=== PATIENT | female | born 1955 | race Caucasian/White ===

== ENCOUNTER 2019-01-28 05:57 | Inpatient (IN) | payer BC, OTHER ==
--- NOTE | 2019-01-27 11:39 | PCM.PREANE ---
Preanesthetic Assessment - Anesthesia/Transfusion/Family Hx Anesthesia History: Prior Anesthesia Reaction Type of Anesthesia Reaction: Excessive Nausea/Vomiting Family History of Anesthesia Reaction: No Transfusion History: No Prior Transfusion(s) Intubation History: Unknown - Review of Systems General: No Symptoms Pulmonary: No Symptoms, Cough Cardiovascular: No Symptoms Gastrointestinal: No Symptoms (GERD) Neurological: No Symptoms (Motion sickness), Tingling (bilateral hands with bone spurs noted in neck spine) Other: Reports: Thyroid Problems (hypothyroidism) - Physical Assessment NPO Status Date: 01/27/19 NPO Status Time: 20:30 Pulse: 77 O2 Sat by Pulse Oximetry: 96 Respiratory Rate: 16 Blood Pressure: 155/88 Temperature: 37.6 C Height: 1.7 m Weight: 86.183 kg ASA Class: 2 Mental Status: Alert & Oriented x3 Airway Class: Mallampati = 2 Dentition: Reports: Normal Dentition, [place](s), [place] Thyro-Mental Finger Breadths: 3 Mouth Opening Finger Breadths: 3 ROM/Head Extension: Full Lungs: Clear to Auscultation, Normal Respiratory Effort Cardiovascular: Regular Rate, Regular Rhythm, No Murmurs - Lab Values: Laboratory Last Values MRSA (PCR) Negative 01/14/19 12:59 All labs reviewed and noted and within acceptable ranges to proceed with scheduled procedure. - Imaging/EKG Impressions: EKG: SR rate=83, probable left atrial enlargement CXR: negative - Allergies Allergies/Adverse Reactions: Allergies Allergy/AdvReac Type Severity Reaction Status Date / Time bandaid adhesive Allergy Itching Uncoded 01/27/19 12:16 - Anesthesia Plan Pre-Op Medication Ordered: Other (PreOp meds: lyrica, tylenol, oxycontin all P.O. in Preop at: 0629) - Acknowledgements Anesthesia Type Planned: Spinal (Right adductor canal block under US guidance for post operative pain control requested by Dr. Luo.) Pt an Appropriate Candidate for the Planned Anesthesia: Yes Alternatives and Risks of Anesthesia Discussed w Pt/Guardian: Yes Pt/Guardian Understands and Agrees with Anesthesia Plan: Yes PreAnesthesia Questionnaire - Past Health History Medical/Surgical History: Denies Medical/Surgical History Gastrointestinal History: Reports: GERD [employer] History: Reports: Other (See Below) Other OB/BYN History: tubal ligation Endocrine/Metabolic History: Reports: Hypothyroidism - Past Surgical History GI Surgical History: Reports: Other (See Below) Musculoskeletal Surgical History: Reports: Arthroscopic Knee Oncologic Surgical History: Reports: Biopsy of Breast - SUBSTANCE USE Smoking Status *Q: Never Smoker Second Hand Smoke Exposure: No Recreational Drug Use History: No - HOME MEDS Home Medications: Home Meds Levothyroxine Sodium [Synthroid] 125 mcg PO DAILY 08/29/15 [History] Calcium Carbonate [Calcium] 500 mg PO DAILY 01/27/19 [History] Cholecalciferol (Vitamin D3) [Vitamin D3] 5,000 unit PO DAILY 01/27/19 [History] Scopolamine [Transderm-Scop] 1 patch TOP Q72H PRN 01/27/19 [History] - CURRENT (IN HOUSE) MEDS Current Meds: Current Medications Lactated Ringer's (Ringers, Lactated) 1,000 mls @ 125 mls/hr IV ASDIRECTED RADHA Stop: 01/28/19 23:00 Lidocaine/Sodium Bicarbonate (Buffered Lidocaine 1% In Ns 8.4%) 0.25 ml IDERM ONETIME PRN PRN Reason: Prior to IV Start Stop: 01/28/19 18:00 Scopolamine (Transderm-Scop) 1.5 mg TOP ONETIME ONE Stop: 01/28/19 08:01 Sodium Chloride (Saline Flush) 10 ml FLUSH ASDIRECTED PRN PRN Reason: Keep Vein Open Stop: 01/28/19 18:00
[~2019-01-28 05:57] MED LIST: Lactated Ringers 1,000 ML IV SCH; Lidocaine 1%/Sod Bicarbonate in NS 8.4% 1 ML Syringe IDERM PRN; Sodium Chloride 0.9% 10 ML Syringe FLUSH PRN
[2019-01-28] MEDS ORDERED: Acetaminophen 325 MG Tab PO SCH (06:02)
[2019-01-28] MEDS ORDERED: oxyCODONE 5 MG Tab PO SCH (06:03)
[2019-01-28] MEDS ORDERED: Pregabalin 75 MG Cap PO SCH (06:03)
[2019-01-28] MEDS ORDERED: Cyclobenzaprine 10 MG Tab PO PRN (06:21)
[2019-01-28] MEDS ORDERED: Magnesium Hydroxide 400 MG/5 ML Susp 30 ML Cup PO PRN (06:21)
[2019-01-28] MEDS ORDERED: Ondansetron 4 MG/2 ML SDV IVPUSH PRN ×2 (06:21→07:32)
[2019-01-28] MEDS ORDERED: Morphine 2 MG/ML Syringe IVPUSH PRN (06:21)
[2019-01-28] MEDS ORDERED: Sennosides 8.6 MG Tab PO PRN (06:21)
[2019-01-28] MEDS ORDERED: Bisacodyl 5 MG Tab PO PRN (06:21)
[2019-01-28] MEDS ORDERED: Naloxone 0.4 MG/ML SDV IVPUSH PRN (06:21)
[2019-01-28] MEDS: Scopolamine 1.5 MG Transdermal Patch TOP ONE ×2 (06:23→12:23)
[2019-01-28] MEDS ORDERED: Vancomycin 1 GM SDV ONE (06:27)
[2019-01-28] MEDS ORDERED: Pregabalin 25 MG Cap PO SCH (06:27)
[2019-01-28] MEDS ORDERED: Iodine/Sodium Iodide 2% Tincture 30 ML Bottle ONE (06:27)
[2019-01-28] MEDS ORDERED: ceFAZolin 1 GM Vial ONE (06:27)
[2019-01-28] MEDS ORDERED: EPINEPHrine 1 MG/ML SDV ONE (06:29)
[2019-01-28] MEDS ORDERED: Ropivacaine 0.5% 5 MG/ML 30 ML SDV ONE (06:29)
[2019-01-28] MEDS ORDERED: ceFAZolin 2 GM in Premix Bag 1 BAG IV SCH (06:30)
[2019-01-28] MEDS ORDERED: Ondansetron 4 MG/2 ML SDV ONE (07:02)
[2019-01-28] MEDS ORDERED: Ketorolac 30 MG/ML SDV ONE (07:02)
[2019-01-28] MEDS ORDERED: Phenylephrine 1% 10 MG/ML SDV ONE (07:02)
[2019-01-28] MEDS ORDERED: Lactated Ringers 1,000 ML ONE ×2 (07:02→08:27)
[2019-01-28] MEDS ORDERED: Dexamethasone 4 MG/ML SDV ONE (07:02)
[2019-01-28] MEDS ORDERED: Propofol 200 MG/20 ML SDV ONE (07:03)
[2019-01-28] MEDS ORDERED: fentaNYL 100 MCG/2 ML SDV ONE (07:03)
[2019-01-28] MEDS ORDERED: Midazolam 1 MG/ML 2 ML SDV ONE (07:03)
--- NOTE | 2019-01-28 07:10 | PCM.CONS ---
H&P History of Present Illness - General Date of Service: 01/28/19 Admit Problem/Dx: Admission Diagnosis/Problem Admission Diagnosis/Problem Osteoarthritis of knee Source of Information: Patient, Old Records, Provider, RN, RN Notes Reviewed History Limitations: Reports: No Limitations - History of Present Illness Initial Comments - Free Text/Narative: Tangela Berman is a 63 yo female patient of Dr. Luo who is post-operative day 0 of right TKA. Hospital medicine was consulted for post-operative medical care of her chronic medical conditions listed below. At this time she is resting comfortably in bed. Pain is controlled. She denies any chest pain, shortness of breath, palpitations, nausea, or vomiting. She carries a history of: hypothyroidism, HLD, OA, GERD, osteopenia. 12-lead EKG shows a sinus rhythm at 83 with probable left atrial enlargement. She was never a smoker. She is a full code. Her primary care provider is Dr. Stallings. Right Knee Pain Score (Numeric/FACES): 2 - Related Data Allergies/Adverse Reactions: Allergies Allergy/AdvReac Type Severity Reaction Status Date / Time bandaid adhesive Allergy Severe Itching Uncoded 01/28/19 10:13 Home Medications: Home Meds Levothyroxine Sodium [Synthroid] 125 mcg PO DAILY 08/29/15 [History] Calcium Carbonate [Calcium] 500 mg PO DAILY 01/27/19 [History] Cholecalciferol (Vitamin D3) [Vitamin D3] 5,000 unit PO DAILY 01/27/19 [History] Scopolamine [Transderm-Scop] 1 patch TOP Q72H PRN 01/27/19 [History] Past Medical History - Past Health History Medical/Surgical History: Denies Medical/Surgical History HEENT History: Reports: Impaired Vision Cardiovascular History: Reports: High Cholesterol Respiratory History: Reports: None Gastrointestinal History: Reports: GERD Other Gastrointestinal History: hematochezia, epigastric pain Genitourinary History: [employer] History: Reports: Other (See Below) Other OB/BYN History: tubal ligation Musculoskeletal History: Reports: Osteoarthritis Neurological History: Reports: None Psychiatric History: Reports: None Endocrine/Metabolic History: Reports: Hypothyroidism Hematologic History: Reports: None Immunologic History: Reports: None Oncologic (Cancer) History: Reports: None Dermatologic History: Reports: None - Past Surgical History GI Surgical History: Reports: Other (See Below) Musculoskeletal Surgical History: Reports: Arthroscopic Knee Oncologic Surgical History: Reports: Biopsy of Breast Social & Family History - Family History Cardiac: Reports: Heart Failure Other Cardiac Family History: mother with diabbetes and CHF Other GI Family History: Daughter with ulcerative colitis Endocrine/Metabolic: Reports: Diabetes, Type I, Hypothyroidism Other Oncologic Family History: Father with esophageal cancer - Tobacco Use Smoking Status *Q: Never Smoker Second Hand Smoke Exposure: No - Caffeine Use Caffeine Use: Reports: Coffee - Recreational Drug Use Recreational Drug Use: No H&P Review of Systems - Review of Systems: Review Of Systems: See Below General: Reports: No Symptoms. Denies: Fever, Chills HEENT: Reports: No Symptoms. Denies: Headaches, Sore Throat Pulmonary: Reports: No Symptoms. Denies: Shortness of Breath, Wheezing, Cough, Sputum Cardiovascular: Reports: No Symptoms. Denies: Chest Pain, Palpitations, Dyspnea on Exertion, Edema Gastrointestinal: Reports: No Symptoms. Denies: Abdominal Pain, Constipation, Diarrhea, Nausea, Vomiting Genitourinary: Reports: No Symptoms. Denies: Pain Musculoskeletal: Reports: Leg Pain Skin: Reports: No Symptoms Psychiatric: Reports: No Symptoms. Denies: Confusion Neurological: Reports: No Symptoms Hematologic/Lymphatic: Reports: No Symptoms Immunologic: Reports: No Symptoms Exam - Exam Exam: See Below - Vital Signs Vital Signs: Last Vital Signs Temp 99.7 F 01/28/19 06:48 Pulse 77 01/28/19 06:48 Resp 16 01/28/19 06:48 BP 155/88 H 01/28/19 06:48 Pulse Ox 96 01/28/19 06:48 Weight: 190 lb - Exam Quality Assessment: DVT Prophylaxis General: Alert, Oriented, Cooperative. No: Mild Distress HEENT: Conjunctiva Clear, EACs Clear, EOMI, Hearing Intact, Mucosa Moist & [place] , Nares Patent, Posterior Pharynx Clear, PERRLA Neck: Supple, Trachea Midline Lungs: Clear to Auscultation, Normal Respiratory Effort Cardiovascular: Regular Rate, Regular Rhythm GI/Abdominal Exam: Normal Bowel Sounds, Soft, Non-Tender, No Organomegaly, No Distention (Female) Exam: Deferred Rectal (Female) Exam: Deferred Back Exam: Normal Inspection, Full Range of Motion Extremities: No Pedal Edema, Normal Capillary Refill, Leg Pain, Limited Range of Motion, Other (Bandage in place on right leg. Bandage is dry and intact. Cooling pack in place ) Peripheral Pulses: 2+: Radial (L), Radial (R), Dorsalis Pedis (L), Dorsalis Pedis (R) Skin: Warm, Dry, Intact Neurological: Cranial Nerves Intact (grossly ) Neuro Extensive - Mental Status: Alert, Oriented x3 Consult PN Assessment/Plan POD#: 0 Procedures: Procedures CT MAXILLOFACIAL W/O DYE (09/01/16) EMERGENCY DEPT VISIT (09/01/16) (1) S/P total knee arthroplasty SNOMED Code(s): 7271062183207, 842055964, 7011674052323 Code(s): Z96.659 - PRESENCE OF UNSPECIFIED ARTIFICIAL KNEE JOINT Priority: High Current Visit: Yes Qualifiers: Laterality: right Qualified Code(s): Z96.651 - Presence of right artificial knee joint (2) Hypothyroidism SNOMED Code(s): 99548417 Code(s): E03.9 - HYPOTHYROIDISM, UNSPECIFIED Priority: Medium Current Visit: No Qualifiers: Hypothyroidism type: unspecified Qualified Code(s): E03.9 - Hypothyroidism , unspecified (3) Osteoarthritis SNOMED Code(s): 522899155 Code(s): M19.90 - UNSPECIFIED OSTEOARTHRITIS, UNSPECIFIED SITE Priority: High Current Visit: Yes Qualifiers: Osteoarthritis location: knee Osteoarthritis type: primary Laterality: right Qualified Code(s): M17.11 - Unilateral primary osteoarthritis, right knee (4) HLD (hyperlipidemia) SNOMED Code(s): 05551223 Code(s): E78.5 - HYPERLIPIDEMIA, UNSPECIFIED Priority: Low Current Visit : No Qualifiers: Hyperlipidemia type: unspecified Qualified Code(s): E78.5 - Hyperlipidemia , unspecified (5) GERD (gastroesophageal reflux disease) SNOMED Code(s): 142239266 Code(s): K21.9 - GASTRO-ESOPHAGEAL REFLUX DISEASE WITHOUT ESOPHAGITIS Priority: Medium Current Visit: No Qualifiers: Esophagitis presence: esophagitis presence not specified Qualified Code(s) : K21.9 - Gastro-esophageal reflux disease without esophagitis (6) Osteopenia SNOMED Code(s): 129338218 Code(s): M85.80 - OTH DISRD OF BONE DENSITY AND STRUCTURE, UNSPECIFIED SITE Priority: Medium Current Visit: No Qualifiers: Osteopenia location: unspecified Qualified Code(s): M85.80 - Other specified disorders of bone density and structure, unspecified site Problem List Initiated/Reviewed/Updated: Yes Plan: I/P: Acute: S/P right total knee arthroplasty - post-operative day 0 -DVT prophylaxis and pain management per primary care team -PT/OT -IS/RT -Monitor oxygen saturation -Titrate oxygen as needed -Home medications reviewed -Vital signs stable -Monitor labs -Pre-operative Hgb was 13.5 -Pre-operative GFR was 65 Osteoarthritis of right knee -Pain management per primary care team Chronic: GERD Hypothyroidism OA HLD Osteopenia Plan: CM for discharge planning GI prophylaxis Home medications as indicated Other orders as listed above Routine AM labs She is a full code. Her PCP is Dr. Stallings Thank you for allowing us to participate in the care of this patient!! Requesting Provider: Dr. Luo Date Consult Requested: 01/28/19 Patient History Reviewed: Yes Admission H&P Reviewed: Yes Time Spent (in minutes): 45
[2019-01-28] MEDS ORDERED: Haloperidol Lactate 5 MG/ML SDV IVPUSH ONE (07:32)
[2019-01-28] MEDS ORDERED: fentaNYL 100 MCG/2 ML SDV IVPUSH PRN (07:32)
[2019-01-28] MEDS ORDERED: HYDROmorphone 0.5 MG/0.5 ML Syringe IVPUSH PRN (07:32)
[2019-01-28] MEDS ORDERED: ePHEDrine 50 MG/ML SDV IVPUSH PRN (07:32)
[2019-01-28] MEDS ORDERED: diphenhydrAMINE 50 MG/ML SDV IVPUSH PRN (07:32)
[2019-01-28] MEDS ORDERED: Phenylephrine 1 MG in Sodium Chloride 0.9% 10 ML IV SCH (07:45)
[2019-01-28] MEDS ORDERED: Morphine 8 MG, EPINEPHrine 0.3 MG, Cefuroxime 750 MG, Ketorolac 30 MG, Sodium Chloride ... ONE ×5 (08:00)
[2019-01-28] MEDS: Morphine 8 MG, EPINEPHrine 0.3 MG, Cefuroxime 750 MG, Ketorolac 30 MG, Sodium Chloride ... ONE ×10 (08:20→08:22)
[2019-01-28] MEDS ORDERED: ePHEDrine/Normal Saline 25 MG/5 ML Syringe ONE (08:20)
[2019-01-28] MEDS: Bupivacaine 0.25% 30 ML SDV ONE ×2 (08:21→08:22)
--- NOTE | 2019-01-28 08:59 | PCM.POSTAN ---
POST ANESTHESIA ASSESSMENT - MENTAL STATUS Mental Status: Alert - VITAL SIGNS Pulse Rate: 82 SaO2: 98 Resp Rate: 17 Blood Pressure: 105/81 Temperature: 36.4 C - RESPIRATORY Respiratory Status: Respiratory Rate WNL, Airway Patent, O2 Saturation Stable - CARDIOVASCULAR CV Status: Pulse Rate WNL, Blood Pressure Stable - GASTROINTESTINAL GI Status: No Symptoms - POST OP HYDRATION Hydration Status: Adequate & Stable
--- NOTE | 2019-01-28 09:17 | PCM.SN ---
- Free Text/Narrative Note: Right selective femoral nerve block at the adductor canal for post-procedure pain control under US guidance requested by Dr. Luo. Time Out: 901 Start: 901 End: 908 Chart reviewed. Consent signed. Questions answered. Appropriate monitors applied. Time out performed. Right mid-shaft femur identified with ultrasound, scanning medially of femur, the femoral artery in the adductor canal visualized , and the femoral nerve located laterally to the artery. The skin was prepped lateral to the ultrasound probe with chlorahexadine times two. The 21ga 4 insulated block needle was inserted under direct ultrasound guidance into the adductor canal. 25mL of 0.5% ropivacaine with 1:200,000 epinephrine was injected circumferentially around the nerve with intermittent negative aspiration noted. Patient tolerated the procedure well. Sterile technique noted along with sterile gloves, mask, and sterile probe cover. See picture on progress note and vital signs on nurses notes. Block completed in PACU. Dolores Kilgore CRNA
--- NOTE | 2019-01-28 09:47 | CR ---
Right knee: AP and lateral views of the right knee were obtained utilizing portable technique. Comparison: Prior MRI right knee study of 08/20/12. Knee prosthesis is seen. Components are aligned. Soft tissue air is noted from the surgical procedure. Underlying bony structures are intact. Impression: 1. Satisfactory postoperative radiographic appearance of recently placed right knee prosthesis. Diagnostic code #2
--- NOTE | 2019-01-28 10:46 | PCM.OPNOTE ---
- General Post-Op/Procedure Note Date of Surgery/Procedure: 01/28/19 Operative Procedure(s): right total knee arthroplasty Pre Op Diagnosis: right knee osteoarthrosis Post-Op Diagnosis: Same Anesthesia Technique: Local, MAC, Spinal Primary Surgeon: Willian Luo Anesthesia Provider: Dolores Kilgore Relationship Banker: Marie Scott Relationship Banker: Maris Truong EBL in mLs: 350 Complications: None Condition: Good Free Text/Narrative:: Intake & Output 01/27/19 01/28/19 01/28/19 22:59 06:59 14:59 Intake Total 540 Balance 540 size 5/5 9mm 29x9
--- NOTE | 2019-01-28 11:14 | OR ---
DATE OF OPERATION: 01/28/2019 SURGEON: Willian Luo MD OPERATION PERFORMED: Right total knee arthroplasty. PREOPERATIVE DIAGNOSIS: Right knee osteoarthrosis. POSTOPERATIVE DIAGNOSIS: Right knee osteoarthrosis. ANESTHESIA: Local MAC with spinal. ANESTHESIA PROVIDER: Dolores Kilgore CRNA TOP DYEING MACHINE TENDER: Marie Scott PA-C, and Maris Truong LPN. ESTIMATED BLOOD LOSS: 350 mL. COMPLICATIONS: None. CONDITION: Stable. IMPLANTS: 1. May size 5 press-fit CR femur. 2. Ivor size 5 press-fit universal tibial base plate. 3. May size 9 mm CS polyethylene insert. 4. Ivor size 29 x 9 mm press fit patella. DESCRIPTION OF PROCEDURE: The patient was identified in the preop holding area. Proper site was marked and identified by the surgeon. The patient was taken back to the operating theater. After adequate anesthesia, the patient's right lower extremity had a nonsterile tourniquet applied and it was sterilely prepped and draped in the usual sterile fashion. OR time-out was performed. The patient received 2 g IV Ancef. At this time, the right lower extremity was exsanguinated. Tourniquet was insufflated to 300 mmHg. Standard medial parapatellar incision was made. Medial parapatellar arthrotomy was created. Deep fibers of the MCL were raised and anterior fat pad was resected. At this time, attention was turned to the patella. Patella measured 20, it was resected to 13 for a 29 x 9 mm patella. Drill holes were then drilled and found to be in adequate position. The drill was then drilled in the distal femur and the intramedullary distal femoral cutting guide was then placed. An 8 mm was resected off the distal femur and was found to be an adequate resection. Sizing guide was placed. It was found to be a size 5 press-fit CR femur that was shown on the implant record at the beginning of this dictation. The drill holes were drilled for the epicondylar axis using [place] line and epicondyles as reference. At this time, the 4-in - 1 cutting block was placed. An anterior posterior and anterior and posterior chamfer cuts were then completed. Attention was turned to the tibia. The posterior medial lateral retractors were placed. The extramedullary tibial guide was placed. It was placed in the old footprint of the ACL. It was aligned with the center of the ankle and 0 degrees of slope, 9 mm was then resected off the unaffected side. There was found to be an acceptable reduction. At this time, posterior osteophytes were removed along with medial and lateral meniscus. A trial implant was placed with a correct sized tibia that was mentioned at the beginning of the dictation. A May size 9 mm CS polyethylene insert was then placed. The patient's knee was brought through range of motion. The patella was tracking centrally and was stable to varus and valgus stress. Alignment was found to be roughly at 0 degrees. The tibia was stamped and drilled in proper rotation. The universal tibial base plate was impacted in place. Next, the May size 5 press-fit CR femur impacted into place and the Ivor size 9 mm CS polyethylene insert was placed. The patient's knee was brought into full extension. The patella was then press-fit in place at this time. Tourniquet was deflated. One liter dilute Betadine solution was irrigated through the knee along with 3 L of pulse lavage irrigation with Ancef. Periarticular injection was then completed. The patient's knee was brought through a range of motion. Knee was found to be stable to varus valgus stress, the patella was tracking centrally with full range of motion. At this time, a #2 barbed suture was used for closure of the medial parapatellar arthrotomy. Topical tranexamic acid was placed. 2-0 Vicryl was used subcutaneously, Prineo was used for the skin. The patient tolerated the procedure well and was sent to the PACU in stable condition. MARCO /[id number] MTDD
[2019-01-28] MEDS: Famotidine 20 MG Tab PO SCH ×2 (12:23→17:31)
[2019-01-28] MEDS: ceFAZolin 2 GM in Premix Bag 1 BAG IV SCH ×2 (13:48→22:35)
[2019-01-28] MEDS: Acetaminophen/oxyCODONE 325-5 MG Tab PO PRN ×2 (13:49→21:12)
[2019-01-28] MEDS: Docusate Sodium 100 MG Cap PO SCH (21:13)
[2019-01-28] MEDS: Ketorolac 15 MG/ML SDV IVPUSH PRN (22:52)
[2019-01-29] MEDS: Acetaminophen/oxyCODONE 325-5 MG Tab PO PRN ×2 (04:29→10:15)
[2019-01-29] MEDS: Famotidine 20 MG Tab PO SCH (06:22)
[2019-01-29] MEDS: ceFAZolin 2 GM in Premix Bag 1 BAG IV SCH (06:22)
--- NOTE | 2019-01-29 06:26 | PCM.CONSN ---
- General Info Date of Service: 01/29/19 Admission Dx/Problem (Free Text): Admission Diagnosis/Problem Admission Diagnosis/Problem Osteoarthritis of knee Functional Status: Reports: Pain Controlled, Tolerating Diet, Ambulating, Urinating, Incentive Spirometry. Denies: New Symptoms - Review of Systems General: Reports: No Symptoms. Denies: Fever, Malaise, Chills HEENT: Reports: No Symptoms. Denies: Headaches, Sore Throat Pulmonary: Reports: No Symptoms. Denies: Shortness of Breath, Cough, Sputum, Wheezing Cardiovascular: Reports: No Symptoms. Denies: Chest Pain, Palpitations, Edema Gastrointestinal: Reports: No Symptoms. Denies: Abdominal Pain, Constipation, Diarrhea, Nausea, Vomiting Genitourinary: Reports: No Symptoms. Denies: Pain Musculoskeletal: Reports: Leg Pain Skin: Reports: No Symptoms Neurological: Reports: No Symptoms. Denies: Confusion Psychiatric: Reports: No Symptoms - Patient Data Vitals - Most Recent: Last Vital Signs Temp 97.5 F 01/28/19 20:31 Pulse 66 01/29/19 04:27 Resp 16 01/29/19 04:27 BP 130/98 H 01/29/19 04:27 Pulse Ox 98 01/29/19 04:27 Weight - Most Recent: 197 lb 1.6 oz I&O - Last 24 Hours: Intake & Output 01/28/19 01/28/19 01/29/19 14:59 22:59 06:59 Intake Total 9713 330 2616 Output Total 1100 1400 Balance 1270 -300 -125 Med Orders - Current: Current Medications Aspirin (Ecotrin) 325 mg PO BID [facility] Bisacodyl (Dulcolax) 5 mg PO DAILY PRN PRN Reason: Constipation Calcium Carbonate/Glycine (Tums) 500 mg PO DAILY [facility] Cholecalciferol (Vitamin D3) 5,000 unit PO DAILY [facility] Cyclobenzaprine HCl (Flexeril) 10 mg PO TID PRN PRN Reason: Spasms Docusate Sodium (Colace) 100 mg PO BID [facility] Last Admin: 01/28/19 21:13 Dose: 100 mg Famotidine (Pepcid) 20 mg PO Q12H [facility] Last Admin: 01/29/19 06:22 Dose: 20 mg Cefazolin Sodium/Dextrose 2 gm (/ Premix) 50 mls @ 100 mls/hr IV Q8H [facility] Stop: 01/29/19 06:59 Last Admin: 01/29/19 06:22 Dose: 100 mls/hr Ketorolac Tromethamine (Toradol) 15 mg IVPUSH Q6H PRN PRN Reason: Pain Last Admin: 01/28/19 22:52 Dose: 15 mg Levothyroxine Sodium (Levothyroxine) 125 mcg PO DAILY@0700 [facility] Last Admin: 01/29/19 06:22 Dose: 125 mcg Magnesium Hydroxide (Milk Of Magnesia) 30 ml PO BID PRN PRN Reason: Constipation Miscellaneous Information (Remove Patch) 1 ea TRDERM Q72H [facility] Morphine Sulfate (Morphine) 2 mg IVPUSH Q2H PRN PRN Reason: Breakthrough Pain Naloxone HCl (Narcan) 0.1 mg IVPUSH Q5M PRN PRN Reason: Oversedation Ondansetron HCl (Zofran) 4 mg IVPUSH Q6H PRN PRN Reason: Nausea/Vomiting Oxycodone/Acetaminophen (Percocet 325-5 Mg) 1 - 2 tab PO Q4H PRN PRN Reason: Pain Last Admin: 01/29/19 04:29 Dose: 2 tab Scopolamine (Transderm-Scop) 1.5 mg TOP Q72H PRN PRN Reason: motion sickness Senna (Senna) 8.6 mg PO BID PRN PRN Reason: Constipation Discontinued Medications Acetaminophen (Tylenol) 975 mg PO NOW [facility] Last Admin: 01/28/19 06:29 Dose: 975 mg Bupivacaine HCl (Marcaine 0.25%) Confirm Administered Dose 30 ml .ROUTE .STK- MED ONE Stop: 01/28/19 06:28 Last Admin: 01/28/19 08:21 Dose: 30 ml Cefazolin Sodium (Ancef) Confirm Administered Dose 2 gm .ROUTE .STK-MED ONE Stop: 01/28/19 06:28 Last Admin: 01/28/19 08:15 Dose: 2 gm Morphine Sulfate 8 mg/Epinephrine HCl 0.3 mg/Cefuroxime Sodium 750 mg/Ketorolac Tromethamine 30 mg/Sodium Chloride 27.9 ml 0 mg .XX ONETIME ONE Stop: 01/28/19 06:22 Last Admin: 01/28/19 08:20 Dose: 788.3 mg Morphine Sulfate 8 mg/Epinephrine HCl 0.3 mg/Cefuroxime Sodium 750 mg/Ketorolac Tromethamine 30 mg/Sodium Chloride 27.9 ml 0 mg .XX ONETIME ONE Stop: 01/28/19 08:01 Last Admin: 01/28/19 12:25 Dose: Not Given Dexamethasone (Dexamethasone) Confirm Administered Dose 4 mg .ROUTE .STK-MED ONE Stop: 01/28/19 07:03 Diphenhydramine HCl (Benadryl) 25 mg IVPUSH Q6H PRN PRN Reason: pruritis Stop: 01/28/19 23:00 Ephedrine Sulfate (Ephedrine Sulfate) 5 mg IVPUSH ASDIRECTED PRN PRN Reason: Hypotension Stop: 01/28/19 23:00 Ephedrine Sulfate (Ephedrine In Ns) Confirm Administered Dose 25 mg .ROUTE .STK- MED ONE Stop: 01/28/19 08:21 Epinephrine HCl (Adrenalin) Confirm Administered Dose 1 mg .ROUTE .STK-MED ONE Stop: 01/28/19 06:30 Fentanyl (Sublimaze) Confirm Administered Dose 100 mcg .ROUTE .STK-MED ONE Stop: 01/28/19 07:04 Fentanyl (Sublimaze) 50 mcg IVPUSH Q5M PRN PRN Reason: Pain Stop: 01/28/19 23:00 Haloperidol Lactate (Haldol) 1 mg IVPUSH ONETIME ONE Stop: 01/28/19 07:33 Last Admin: 01/28/19 12:24 Dose: Not Given Hydromorphone HCl (Dilaudid) 0.5 mg IVPUSH Q15M PRN PRN Reason: Pain (severe 7-10) Stop: 01/28/19 23:00 Lactated Ringer's (Ringers, Lactated) 1,000 mls @ 125 mls/hr IV ASDIRECTED [facility] Stop: 01/28/19 23:00 Last Admin: 01/28/19 06:35 Dose: 125 mls/hr Cefazolin Sodium/Dextrose 2 gm (/ Premix) 50 mls @ 100 mls/hr IV Q8H [facility] Stop: 01/28/19 22:59 Last Admin: 01/28/19 14:28 Dose: Not Given Lidocaine HCl (Xylocaine-Mpf 1%) Confirm Administered Dose 10 mls @ as directed .ROUTE .STK-MED ONE Stop: 01/28/19 07:03 Lactated Ringer's (Ringers, Lactated) Confirm Administered Dose 1,000 mls @ as directed .ROUTE .[facility]-MED ONE Stop: 01/28/19 07:03 Phenylephrine HCl 1 mg/ Sodium (Chloride) 10.1 mls @ 1 mls/sec IV TITRATE [facility]; Protocol Stop: 01/28/19 23:00 Lactated Ringer's (Ringers, Lactated) Confirm Administered Dose 1,000 mls @ as directed .ROUTE .[facility]-MED ONE Stop: 01/28/19 08:28 Iodine (Iodine 2% Mild Tincture) Confirm Administered Dose 30 ml .ROUTE .[facility]- MED ONE Stop: 01/28/19 06:28 Last Admin: 01/28/19 08:12 Dose: 18 ml Ketorolac Tromethamine (Toradol) Confirm Administered Dose 30 mg .ROUTE .[facility]- MED ONE Stop: 01/28/19 07:03 Lidocaine/Sodium Bicarbonate (Buffered Lidocaine 1% In Ns 8.4%) 0.25 ml IDERM ONETIME PRN PRN Reason: Prior to IV Start Stop: 01/28/19 18:00 Last Admin: 01/28/19 06:24 Dose: 0.25 ml Midazolam HCl (Versed 1 Mg/Ml) Confirm Administered Dose 2 mg .ROUTE .[facility]-MED ONE Stop: 01/28/19 07:04 Ondansetron HCl (Zofran) Confirm Administered Dose 4 mg .ROUTE .[facility]-MED ONE Stop: 01/28/19 07:03 Ondansetron HCl (Zofran) 4 mg IVPUSH ONETIME PRN PRN Reason: Nausea/Vomiting Stop: 01/28/19 23:00 Oxycodone HCl (Oxycodone) 10 mg PO ONETIME [facility] Last Admin: 01/28/19 06:29 Dose: 10 mg Phenylephrine HCl (Pedro-Synephrine) Confirm Administered Dose 10 mg .ROUTE .ST- MED ONE Stop: 01/28/19 07:03 Pregabalin (Lyrica) 50 mg PO ONETIME [facility] Pregabalin (Lyrica) 50 mg PO ONETIME [facility] Last Admin: 01/28/19 06:29 Dose: 50 mg Propofol (Diprivan 20 Ml) Confirm Administered Dose 400 mg .ROUTE .STK-MED ONE Stop: 01/28/19 07:04 Ropivacaine (Naropin 0.5%) Confirm Administered Dose 30 ml .ROUTE .STK-MED ONE Stop: 01/28/19 06:30 Scopolamine (Transderm-Scop) 1.5 mg TOP ONETIME ONE Stop: 01/28/19 08:01 Last Admin: 01/28/19 12:23 Dose: Not Given Sodium Chloride (Saline Flush) 10 ml FLUSH ASDIRECTED PRN PRN Reason: Keep Vein Open Stop: 01/28/19 18:00 Tranexamic Acid (Cyklokapron) Confirm Administered Dose 1,000 mg .ROUTE .STK- MED ONE Stop: 01/28/19 06:28 Last Admin: 01/28/19 08:31 Dose: 1,000 mg Vancomycin HCl (Vancomycin) Confirm Administered Dose 1 gm .ROUTE .STK-MED ONE Stop: 01/28/19 06:28 Last Admin: 01/28/19 08:22 Dose: 1 gm - Exam Quality Assessment: DVT Prophylaxis General: Alert, Oriented, Cooperative, No Acute Distress HEENT: Pupils Equal, Pupils Reactive, EOMI, Mucous Membr. Moist/[place] Neck: Supple, Trachea Midline, No JVD Lungs: Clear to Auscultation, Normal Respiratory Effort Cardiovascular: Regular Rate, Regular Rhythm GI/Abdominal Exam: Normal Bowel Sounds, Soft, Non-Tender, No Organomegaly, No Distention (Female) Exam: Deferred Back Exam: Normal Inspection, Full Range of Motion Extremities: No Pedal Edema, Normal Capillary Refill, Leg Pain, Limited Range of Motion, Other (Bandage in place on right leg. Cooling pack in place. ) Peripheral Pulses: 2+: Radial (L), Radial (R), Dorsalis Pedis (L), Dorsalis Pedis (R) Skin: Warm, Dry, Intact Wound/Incisions: Dressing Dry and Intact, No Drainage Neurological: No New Focal Deficit Psy/Mental Status: Alert, Normal Affect, Normal Mood Consult PN Assessment/Plan POD#: 1 Procedures: Procedures CT MAXILLOFACIAL W/O DYE (09/01/16) EMERGENCY DEPT VISIT (09/01/16) (1) S/P total knee arthroplasty SNOMED Code(s): 4884599144637, 195421849, 5447232448863 Code(s): Z96.659 - PRESENCE OF UNSPECIFIED ARTIFICIAL KNEE JOINT Priority: High Current Visit: Yes Qualifiers: Laterality: right Qualified Code(s): Z96.651 - Presence of right artificial knee joint (2) Hypothyroidism SNOMED Code(s): 14528712 Code(s): E03.9 - HYPOTHYROIDISM, UNSPECIFIED Priority: Medium Current Visit: No Qualifiers: Hypothyroidism type: unspecified Qualified Code(s): E03.9 - Hypothyroidism , unspecified (3) Osteoarthritis SNOMED Code(s): 070892333 Code(s): M19.90 - UNSPECIFIED OSTEOARTHRITIS, UNSPECIFIED SITE Priority: High Current Visit: Yes Qualifiers: Osteoarthritis location: knee Osteoarthritis type: primary Laterality: right Qualified Code(s): M17.11 - Unilateral primary osteoarthritis, right knee (4) HLD (hyperlipidemia) SNOMED Code(s): 76025536 Code(s): E78.5 - HYPERLIPIDEMIA, UNSPECIFIED Priority: Low Current Visit : No Qualifiers: Hyperlipidemia type: unspecified Qualified Code(s): E78.5 - Hyperlipidemia , unspecified (5) GERD (gastroesophageal reflux disease) SNOMED Code(s): 627228060 Code(s): K21.9 - GASTRO-ESOPHAGEAL REFLUX DISEASE WITHOUT ESOPHAGITIS Priority: Medium Current Visit: No Qualifiers: Esophagitis presence: esophagitis presence not specified Qualified Code(s) : K21.9 - Gastro-esophageal reflux disease without esophagitis (6) Osteopenia SNOMED Code(s): 422314255 Code(s): M85.80 - OTH DISRD OF BONE DENSITY AND STRUCTURE, UNSPECIFIED SITE Priority: Medium Current Visit: No Qualifiers: Osteopenia location: unspecified Qualified Code(s): M85.80 - Other specified disorders of bone density and structure, unspecified site Problem List Initiated/Reviewed/Updated: Yes Plan: I/P: Acute: S/P right total knee arthroplasty - post-operative day 1 -DVT prophylaxis and pain management per primary care team -PT/OT -IS/RT -Monitor oxygen saturation -Titrate oxygen as needed -Home medications reviewed -Vital signs stable -Monitor labs -Pre-operative Hgb was 13.5; Now 10.0 -Pre-operative GFR was 65; Now 56 Osteoarthritis of right knee -Pain management per primary care team Chronic: GERD Hypothyroidism OA HLD Osteopenia Plan: CM for discharge planning GI prophylaxis Home medications as indicated Other orders as listed above Routine AM labs She is a full code. Her PCP is Dr. Stallings From a hospitalist standpoint Tangela is doing well. She has been up ambulating and working with therapies. Her labs and vital signs have remained stable. She has urinated and is off of oxygen. No patient or nursing concerns. She will be cleared for discharge today pending primary team and PT/OT agreement. Thank you for allowing us to participate in the care of this patient!!
[2019-01-29] MEDS ORDERED: Levothyroxine 125 MCG Tab PO SCH (07:00)
--- NOTE | 2019-01-29 07:03 | PCM.SURGPN ---
- General Info Date of Service: 01/29/19 POD#: 1 Functional Status: Reports: Tolerating Diet, Ambulating, Urinating, Incentive Spirometry, Other (Pt states she feels prepared for discharge to home.) - Patient Data Vitals - Most Recent: Last Vital Signs Temp 97.5 F 01/28/19 20:31 Pulse 66 01/29/19 04:27 Resp 16 01/29/19 04:27 BP 130/98 H 01/29/19 04:27 Pulse Ox 98 01/29/19 04:27 Weight - Most Recent: 197 lb 1.6 oz I&O - Last 24 Hours: Intake & Output 01/28/19 01/29/19 01/29/19 22:59 06:59 14:59 Intake Total 800 1275 Output Total 1100 1400 Balance -300 -125 Lab Results Last 24 Hrs: Laboratory Results - last 24 hr 01/29/19 01/29/19 Range/Units 05:27 05:27 WBC 10.47 H (3.98-10.04) K/mm3 RBC 3.29 L (3.98-5.22) M/mm3 Hgb 10.0 L D (11.2-15.7) gm/L Hct 30.9 L (34.1-44.9) % MCV 93.9 D (79.4-94.8) fl MCH 30.4 (25.6-32.2) pg MCHC 32.4 (32.2-35.5) g/dl RDW Std Deviation 44.4 (36.4-46.3) fL Plt Count 289 (182-369) K/mm3 MPV 9.5 (9.4-12.3) fl Sodium 136 (136-145) mEq/L Potassium 4.0 (3.5-5.1) mEq/L Chloride 102 (98-107) mEq/L Carbon Dioxide 26 (21-32) mEq/L Anion Gap 12.0 (5-15) BUN 17 (7-18) mg/dL Creatinine 1.0 (0.55-1.02) mg/dL Est Cr Clr Drug Dosing 56.00 mL/min Estimated GFR (MDRD) 56 (>60) mL/min BUN/Creatinine Ratio 17.0 (14-18) Glucose 118 H (80-115) mg/dL Calcium 8.5 (8.5-10.1) mg/dL Total Bilirubin 0.6 (0.2-1.0) mg/dL AST 38 H (15-37) U/L ALT 50 (14-59) U/L Alkaline Phosphatase 63 (46-116) U/L Total Protein 5.8 L (6.4-8.2) g/dl Albumin 2.9 L (3.4-5.0) g/dl Globulin 2.9 gm/dL Albumin/Globulin Ratio 1.0 (1-2) Med Orders - Current: Current Medications Aspirin (Ecotrin) 325 mg PO BID [facility] Bisacodyl (Dulcolax) 5 mg PO DAILY PRN PRN Reason: Constipation Calcium Carbonate/Glycine (Tums) 500 mg PO DAILY [facility] Cholecalciferol (Vitamin D3) 5,000 unit PO DAILY [facility] Cyclobenzaprine HCl (Flexeril) 10 mg PO TID PRN PRN Reason: Spasms Docusate Sodium (Colace) 100 mg PO BID [facility] Last Admin: 01/28/19 21:13 Dose: 100 mg Famotidine (Pepcid) 20 mg PO Q12H [facility] Last Admin: 01/29/19 06:22 Dose: 20 mg Ketorolac Tromethamine (Toradol) 15 mg IVPUSH Q6H PRN PRN Reason: Pain Last Admin: 01/28/19 22:52 Dose: 15 mg Levothyroxine Sodium (Levothyroxine) 125 mcg PO DAILY@0700 [facility] Last Admin: 01/29/19 06:22 Dose: 125 mcg Magnesium Hydroxide (Milk Of Magnesia) 30 ml PO BID PRN PRN Reason: Constipation Miscellaneous Information (Remove Patch) 1 ea TRDERM Q72H [facility] Morphine Sulfate (Morphine) 2 mg IVPUSH Q2H PRN PRN Reason: Breakthrough Pain Naloxone HCl (Narcan) 0.1 mg IVPUSH Q5M PRN PRN Reason: Oversedation Ondansetron HCl (Zofran) 4 mg IVPUSH Q6H PRN PRN Reason: Nausea/Vomiting Oxycodone/Acetaminophen (Percocet 325-5 Mg) 1 - 2 tab PO Q4H PRN PRN Reason: Pain Last Admin: 01/29/19 04:29 Dose: 2 tab Scopolamine (Transderm-Scop) 1.5 mg TOP Q72H PRN PRN Reason: motion sickness Senna (Senna) 8.6 mg PO BID PRN PRN Reason: Constipation Discontinued Medications Acetaminophen (Tylenol) 975 mg PO NOW [facility] Last Admin: 01/28/19 06:29 Dose: 975 mg Bupivacaine HCl (Marcaine 0.25%) Confirm Administered Dose 30 ml .ROUTE .STK- MED ONE Stop: 01/28/19 06:28 Last Admin: 01/28/19 08:21 Dose: 30 ml Cefazolin Sodium (Ancef) Confirm Administered Dose 2 gm .ROUTE .STK-MED ONE Stop: 01/28/19 06:28 Last Admin: 01/28/19 08:15 Dose: 2 gm Morphine Sulfate 8 mg/Epinephrine HCl 0.3 mg/Cefuroxime Sodium 750 mg/Ketorolac Tromethamine 30 mg/Sodium Chloride 27.9 ml 0 mg .XX ONETIME ONE Stop: 01/28/19 06:22 Last Admin: 01/28/19 08:20 Dose: 788.3 mg Morphine Sulfate 8 mg/Epinephrine HCl 0.3 mg/Cefuroxime Sodium 750 mg/Ketorolac Tromethamine 30 mg/Sodium Chloride 27.9 ml 0 mg .XX ONETIME ONE Stop: 01/28/19 08:01 Last Admin: 01/28/19 12:25 Dose: Not Given Dexamethasone (Dexamethasone) Confirm Administered Dose 4 mg .ROUTE .STK-MED ONE Stop: 01/28/19 07:03 Diphenhydramine HCl (Benadryl) 25 mg IVPUSH Q6H PRN PRN Reason: pruritis Stop: 01/28/19 23:00 Ephedrine Sulfate (Ephedrine Sulfate) 5 mg IVPUSH ASDIRECTED PRN PRN Reason: Hypotension Stop: 01/28/19 23:00 Ephedrine Sulfate (Ephedrine In Ns) Confirm Administered Dose 25 mg .ROUTE .STK- MED ONE Stop: 01/28/19 08:21 Epinephrine HCl (Adrenalin) Confirm Administered Dose 1 mg .ROUTE .STK-MED ONE Stop: 01/28/19 06:30 Fentanyl (Sublimaze) Confirm Administered Dose 100 mcg .ROUTE .STK-MED ONE Stop: 01/28/19 07:04 Fentanyl (Sublimaze) 50 mcg IVPUSH Q5M PRN PRN Reason: Pain Stop: 01/28/19 23:00 Haloperidol Lactate (Haldol) 1 mg IVPUSH ONETIME ONE Stop: 01/28/19 07:33 Last Admin: 01/28/19 12:24 Dose: Not Given Hydromorphone HCl (Dilaudid) 0.5 mg IVPUSH Q15M PRN PRN Reason: Pain (severe 7-10) Stop: 01/28/19 23:00 Lactated Ringer's (Ringers, Lactated) 1,000 mls @ 125 mls/hr IV ASDIRECTED [facility] Stop: 01/28/19 23:00 Last Admin: 01/28/19 06:35 Dose: 125 mls/hr Cefazolin Sodium/Dextrose 2 gm (/ Premix) 50 mls @ 100 mls/hr IV Q8H [facility] Stop: 01/28/19 22:59 Last Admin: 01/28/19 14:28 Dose: Not Given Lidocaine HCl (Xylocaine-Mpf 1%) Confirm Administered Dose 10 mls @ as directed .ROUTE .STK-MED ONE Stop: 01/28/19 07:03 Lactated Ringer's (Ringers, Lactated) Confirm Administered Dose 1,000 mls @ as directed .ROUTE .STK-MED ONE Stop: 01/28/19 07:03 Phenylephrine HCl 1 mg/ Sodium (Chloride) 10.1 mls @ 1 mls/sec IV TITRATE [facility]; Protocol Stop: 01/28/19 23:00 Lactated Ringer's (Ringers, Lactated) Confirm Administered Dose 1,000 mls @ as directed .ROUTE .STK-MED ONE Stop: 01/28/19 08:28 Cefazolin Sodium/Dextrose 2 gm (/ Premix) 50 mls @ 100 mls/hr IV Q8H [facility] Stop: 01/29/19 06:59 Last Admin: 01/29/19 06:22 Dose: 100 mls/hr Iodine (Iodine 2% Mild Tincture) Confirm Administered Dose 30 ml .ROUTE .STK- MED ONE Stop: 01/28/19 06:28 Last Admin: 01/28/19 08:12 Dose: 18 ml Ketorolac Tromethamine (Toradol) Confirm Administered Dose 30 mg .ROUTE .STK- MED ONE Stop: 01/28/19 07:03 Lidocaine/Sodium Bicarbonate (Buffered Lidocaine 1% In Ns 8.4%) 0.25 ml IDERM ONETIME PRN PRN Reason: Prior to IV Start Stop: 01/28/19 18:00 Last Admin: 01/28/19 06:24 Dose: 0.25 ml Midazolam HCl (Versed 1 Mg/Ml) Confirm Administered Dose 2 mg .ROUTE .STK-MED ONE Stop: 01/28/19 07:04 Ondansetron HCl (Zofran) Confirm Administered Dose 4 mg .ROUTE .STK-MED ONE Stop: 01/28/19 07:03 Ondansetron HCl (Zofran) 4 mg IVPUSH ONETIME PRN PRN Reason: Nausea/Vomiting Stop: 01/28/19 23:00 Oxycodone HCl (Oxycodone) 10 mg PO ONETIME [facility] Last Admin: 01/28/19 06:29 Dose: 10 mg Phenylephrine HCl (Pedro-Synephrine) Confirm Administered Dose 10 mg .ROUTE .STK- MED ONE Stop: 01/28/19 07:03 Pregabalin (Lyrica) 50 mg PO ONETIME [facility] Pregabalin (Lyrica) 50 mg PO ONETIME [facility] Last Admin: 01/28/19 06:29 Dose: 50 mg Propofol (Diprivan 20 Ml) Confirm Administered Dose 400 mg .ROUTE .STK-MED ONE Stop: 01/28/19 07:04 Ropivacaine (Naropin 0.5%) Confirm Administered Dose 30 ml .ROUTE .STK-MED ONE Stop: 01/28/19 06:30 Scopolamine (Transderm-Scop) 1.5 mg TOP ONETIME ONE Stop: 01/28/19 08:01 Last Admin: 01/28/19 12:23 Dose: Not Given Sodium Chloride (Saline Flush) 10 ml FLUSH ASDIRECTED PRN PRN Reason: Keep Vein Open Stop: 01/28/19 18:00 Tranexamic Acid (Cyklokapron) Confirm Administered Dose 1,000 mg .ROUTE .STK- MED ONE Stop: 01/28/19 06:28 Last Admin: 01/28/19 08:31 Dose: 1,000 mg Vancomycin HCl (Vancomycin) Confirm Administered Dose 1 gm .ROUTE .STK-MED ONE Stop: 01/28/19 06:28 Last Admin: 01/28/19 08:22 Dose: 1 gm - Exam Wound/Incisions: Dressing Dry and Intact General: Alert, Cooperative, No Acute Distress Lungs: Normal Respiratory Effort Extremities: Other (Indepedent SLR noted RLE today. NVS intact for RLE. Carlos Manuel' s negative.) - Problem List Review Problem List Initiated/Reviewed/Updated: Yes - My Orders Last 24 Hours: Active Orders 24 hr Category Date Time Status Patient Status [ADT] Routine ADT 01/28/19 06:21 Active Antiembolic Devices [RC] QSHIFT Care 01/28/19 06:22 Active Notify Provider Consults [RC] ASDIRECTED Care 01/28/19 06:24 Active Notify Provider [RC] ASDIRECTED Care 01/28/19 07:32 Active Oxygen Therapy [RC] PRN Care 01/28/19 06:21 Active Pulse Oximetry [RC] ASDIRECTED Care 01/28/19 07:32 Active RT Incentive Spirometry [RC] Q1HWA Care 01/28/19 06:21 Active Ready for Discharge [RC] PER UNIT ROUTINE Care 01/29/19 07:00 Ordered Vital Signs [RC] Q4HR Care 01/28/19 06:21 Active Consult to Physician [CONS] Routine Cons 01/28/19 06:21 Active OT Evaluation and Treatment [CONS] Routine Cons 01/28/19 06:21 Active PT Evaluation and Treatment [CONS] Routine Cons 01/28/19 06:21 Active Regular Diet [DIET] Diet 01/28/19 Lunch Active Acetaminophen/oxyCODONE [Percocet 325-5 MG] Med 01/28/19 06:21 Active 1 - 2 tab PO Q4H PRN Aspirin [Ecotrin] Med 01/29/19 09:00 Active 325 mg PO BID Bisacodyl [Dulcolax] Med 01/28/19 06:21 Active 5 mg PO DAILY PRN Calcium Carbonate [Tums] Med 01/29/19 09:00 Active 500 mg PO DAILY Cholecalciferol (Vitamin D3) [Vitamin D3] Med 01/29/19 09:00 Active 5,000 unit PO DAILY Cyclobenzaprine [Flexeril] Med 01/28/19 06:21 Active 10 mg PO TID PRN Docusate Sodium [Colace] Med 01/28/19 21:00 Active 100 mg PO BID Famotidine [Pepcid] Med 01/28/19 06:30 Active 20 mg PO Q12H Ketorolac [Toradol] Med 01/28/19 06:21 Active 15 mg IVPUSH Q6H PRN Levothyroxine Med 01/29/19 07:00 Active 125 mcg PO DAILY@0700 Magnesium Hydroxide [Milk of Magnesia] Med 01/28/19 06:21 Active 30 ml PO BID PRN Morphine Med 01/28/19 06:21 Active 2 mg IVPUSH Q2H PRN Naloxone [Narcan] Med 01/28/19 06:21 Active 0.1 mg IVPUSH Q5M PRN Ondansetron [Zofran] Med 01/28/19 06:21 Active 4 mg IVPUSH Q6H PRN Remove Patch Med 01/31/19 07:00 Active 1 ea TRDERM Q72H Scopolamine [Transderm-Scop] Med 01/31/19 07:00 Active 1.5 mg TOP Q72H PRN Sennosides [Senna] Med 01/28/19 06:21 Active 8.6 mg PO BID PRN Antiembolic Hose [OM.PC] Per Unit Routine Oth 01/28/19 06:23 Ordered Ice Therapy [OM.PC] Per Unit Routine Oth 01/28/19 06:22 Ordered Sequential Compression Device [OM.PC] Per Unit Routine Oth 01/28/19 06:21 Ordered Resuscitation Status Routine Resus Stat 01/28/19 06:21 Ordered Medication Orders Aspirin (Ecotrin) 325 mg PO BID [facility] Bisacodyl (Dulcolax) 5 mg PO DAILY PRN PRN Reason: Constipation Calcium Carbonate/Glycine (Tums) 500 mg PO DAILY [facility] Cholecalciferol (Vitamin D3) 5,000 unit PO DAILY [facility] Cyclobenzaprine HCl (Flexeril) 10 mg PO TID PRN PRN Reason: Spasms Docusate Sodium (Colace) 100 mg PO BID [facility] Last Admin: 01/28/19 21:13 Dose: 100 mg Famotidine (Pepcid) 20 mg PO Q12H [facility] Last Admin: 01/29/19 06:22 Dose: 20 mg Admin: 01/28/19 17:31 Dose: 20 mg Admin: 01/28/19 12:23 Dose: Ketorolac Tromethamine (Toradol) 15 mg IVPUSH Q6H PRN PRN Reason: Pain Last Admin: 01/28/19 22:52 Dose: 15 mg Levothyroxine Sodium (Levothyroxine) 125 mcg PO DAILY@0700 [facility] Last Admin: 01/29/19 06:22 Dose: 125 mcg Magnesium Hydroxide (Milk Of Magnesia) 30 ml PO BID PRN PRN Reason: Constipation Miscellaneous Information (Remove Patch) 1 ea TRDERM Q72H [facility] Morphine Sulfate (Morphine) 2 mg IVPUSH Q2H PRN PRN Reason: Breakthrough Pain Naloxone HCl (Narcan) 0.1 mg IVPUSH Q5M PRN PRN Reason: Oversedation Ondansetron HCl (Zofran) 4 mg IVPUSH Q6H PRN PRN Reason: Nausea/Vomiting Oxycodone/Acetaminophen (Percocet 325-5 Mg) 1 - 2 tab PO Q4H PRN PRN Reason: Pain Last Admin: 01/29/19 04:29 Dose: 2 tab Admin: 01/28/19 21:12 Dose: 2 tab Admin: 01/28/19 13:49 Dose: 2 tab Scopolamine (Transderm-Scop) 1.5 mg TOP Q72H PRN PRN Reason: motion sickness Senna (Senna) 8.6 mg PO BID PRN PRN Reason: Constipation - Assessment Assessment (Free Text/Narrative):: POD#1 - right TKA - Plan Plan (Free Text/Narrative):: 1. Discharge to home today. 2. 325mg ASA PO BID, frequent mobility, TEDs. 3. Percocet, Flexeril for pain management. 4. Outpatient therapy. 5. Hgb 10.0 today. The pt's case was discussed with Dr. Luo.
--- NOTE | 2019-01-29 07:58 | PCM48HPAN ---
Post Anesthesia Note - EVALUATION WITHIN 48HRS OF ANESTHETIC Vital Signs in Normal Range: Yes Patient Participated in Evaluation: Yes Respiratory Function Stable: Yes Airway Patent: Yes Cardiovascular Function Stable: Yes Hydration Status Stable: Yes Pain Control Satisfactory: Yes Nausea and Vomiting Control Satisfactory: Yes Mental Status Recovered: Yes - COMMENTS/OBSERVATIONS Free Text/Narrative:: Patient sitting up in chair after just ambulating. Patient has no concerns at this time.
[2019-01-29] MEDS ORDERED: Cholecalciferol (Vitamin D3) 5,000 UNIT Tab PO SCH (09:00)
[2019-01-29] MEDS ORDERED: Calcium Carbonate 500 MG Tab.Chew PO SCH (09:00)
[2019-01-29] MEDS ORDERED: Aspirin 325 MG Tab.EC PO SCH (09:00)
[2019-01-29] MEDS: Docusate Sodium 100 MG Cap PO SCH (09:41)
[2019-01-29] MEDS: Ketorolac 15 MG/ML SDV IVPUSH PRN (10:14)
[2019-01-29 11:35] VITALS: BP 111/62
--- NOTE | 2019-01-29 15:04 | PCM.DCSUM1 ---
Discharge Summary - Hospital Course Brief History: Tangela is a 63 yo female who underwent right TKA with Dr. Luo on 01-28-2019. The procedure was completed under spinal anesthesia with sedation. The pt tolerated the procedure well and was admitted to the Medical-Surgical Unit. Medical management was provided by the Hospitalist service. The pt's Hospital course was uneventful. The pt's Hgb on POD#1 was 10.0. On POD#1, 325mg ASA BID was initiated for VTE prophylaxis. SCDs and TEDs were also ordered. A Mepilex dressing was placed at the incision site at the time of surgery and remained clean and dry. The pt participated in P.T. and O.T. and progressed well. On POD#1, the pt was deemed appropriate to discharge to home. - Discharge Data Discharge Date: 01/29/19 Discharge Disposition: Home, Self-Care 01 Condition: Good - Patient Summary/Data Operative Procedure(s) Performed: right total knee arthroplasty Consults: Consultations 01/28/19 06:21 Consult to Physician [CONS] Routine OT Evaluation and Treatment [CONS] Routine PT Evaluation and Treatment [CONS] Routine - Patient Instructions Diet: Usual Diet as Tolerated Activity: Apply Ice, As Tolerated, Elevate Extremity, Full Weight Bearing Driving: Do Not Drive Showering/Bathing: May Shower Wound/Incision Care: Keep Operative Site/Wound Site Clean and Dry, Do NOT Change Dressing Notify Provider of: Fever, Increased Pain, Swelling and Redness, Drainage, Nausea and/or Vomiting Other/Special Instructions: Please get up and moving around EVERY HOUR while awake. This helps to prevent blood clots. Please use your walker and have help with mobility as needed. Take a short walk in your home every hour while awake. Please take 325mg Aspirin TWICE daily. The aspirin is being used for blood clot prevention and not for pain management so please do not miss a dose of the medication. You could use a medication like Zantac or Pepcid and a medication like Prilosec or Nexium to protect your stomach while you are using the aspirin. At home, please complete the exercises that you learned during the Hospital stay. Schedule for physical therapy. Use the pain medication as needed. The medication may cause drowsiness and constipation. Contact your primary care provider for instructions if you are constipated. You may use a stool softener like docusate sodium or Colace 100mg twice daily and/or a laxative like Miralax daily for constipation. Increase your water and fiber intake while you are using the pain medication. Discontinue use of the pain medication as soon as able. Please do not use other medications that may cause drowsiness (other pain medications, anxiety pills, cold medications, sleeping pills, etc) while using the prescription pain medication. Do not use alcohol while using the pain medication. You may use acetaminophen or Tylenol for pain management, however, please ensure you are not using over 4000 mg or 4 grams of acetaminophen per day from all sources. Your pain medication has 325mg of acetaminophen per tablet. At this time, please do not use ibuprofen (Motrin, Advil) or naproxen (Aleve) for pain management as you are using the aspirin. When the aspirin course is completed in 4 to 6 weeks, you could use ibuprofen or naproxen for pain management (if this is allowed by your primary care provider). Wear the KANG hose during the day and you may remove these at night. Elevate the limb to decrease swelling. Place ice to the area often. Place a towel between your skin and the blue pad. Use the incentive spirometer often. Take deep breaths throughout the day. Please keep the dressing in place until follow-up. Notify the Clinic if the dressing becomes saturated. Increase your protein intake while you are healing. If you have diabetes, please closely monitor your blood sugars and notify your primary care provider with abnormal values. Elevated blood sugars increases the risk of infection. Call the Clinic with questions or concerns - [phone]. - Discharge Plan *PRESCRIPTION DRUG MONITORING PROGRAM REVIEWED*: No *COPY OF PRESCRIPTION DRUG MONITORING REPORT IN PATIENT JULIOCESAR: No Prescriptions/Med Rec: Acetaminophen/oxyCODONE [Percocet 325-5 MG] 1 - 2 tab PO Q4H PRN #60 tablet PRN Reason: Pain Aspirin [Ecotrin] 325 mg PO BID #84 tab.ec Cyclobenzaprine [Flexeril] 10 mg PO TID PRN #40 tablet PRN Reason: Spasms Home Medications: Home Meds Levothyroxine Sodium [Synthroid] 125 mcg PO DAILY 08/29/15 [History] Calcium Carbonate [Calcium] 500 mg PO DAILY 01/27/19 [History] Cholecalciferol (Vitamin D3) [Vitamin D3] 5,000 unit PO DAILY 01/27/19 [History] Scopolamine [Transderm-Scop] 1 patch TOP Q72H PRN 01/27/19 [History] Acetaminophen/oxyCODONE [Percocet 325-5 MG] 1 - 2 tab PO Q4H PRN #60 tablet [Rx] Aspirin [Ecotrin] 325 mg PO BID #84 tab.ec 01/28/19 [Rx] Bisacodyl [Dulcolax] 5 mg PO DAILY PRN tablet 01/28/19 [Rx] Cyclobenzaprine [Flexeril] 10 mg PO TID PRN #40 tablet 01/28/19 [Rx] Docusate Sodium [Colace] 100 mg PO BID cap 01/28/19 [Rx] Famotidine [Pepcid] 20 mg PO Q12H tablet 01/28/19 [Rx] Magnesium Hydroxide [Milk of Magnesia] 30 ml PO BID PRN cup 01/28/19 [Rx] Remove Patch 1 ea TRDERM Q72H each 01/28/19 [Rx] Sennosides [Senna] 8.6 mg PO BID PRN tablet 01/28/19 [Rx] Referrals: Marie Scott PA-C [Physician Lathe Mechanic] - (1. Follow-up with Marie Scott PA-C on Monday, February 04, 2019 at 12:00pm. 2. Follow-up with Marie Scott PA-C on February 11, 2019 at 12:00pm.) - Discharge Summary/Plan Comment DC Time >30 min.: No - Patient Data Vitals - Most Recent: Last Vital Signs Temp 99.1 F 01/29/19 10:48 Pulse 70 01/29/19 10:48 Resp 18 01/29/19 10:48 BP 111/62 01/29/19 10:48 Pulse Ox 100 01/29/19 10:48 Weight - Most Recent: 197 lb 1.6 oz I&O - Last 24 hours: Intake & Output 01/29/19 01/29/19 01/29/19 06:59 14:59 22:59 Intake Total 1275 540 Output Total 1400 Balance -125 540 Lab Results - Last 24 hrs: Laboratory Results - last 24 hr 01/29/19 01/29/19 Range/Units 05:27 05:27 WBC 10.47 H (3.98-10.04) K/mm3 RBC 3.29 L (3.98-5.22) M/mm3 Hgb 10.0 L D (11.2-15.7) gm/L Hct 30.9 L (34.1-44.9) % MCV 93.9 D (79.4-94.8) fl MCH 30.4 (25.6-32.2) pg MCHC 32.4 (32.2-35.5) g/dl RDW Std Deviation 44.4 (36.4-46.3) fL Plt Count 289 (182-369) K/mm3 MPV 9.5 (9.4-12.3) fl Sodium 136 (136-145) mEq/L Potassium 4.0 (3.5-5.1) mEq/L Chloride 102 (98-107) mEq/L Carbon Dioxide 26 (21-32) mEq/L Anion Gap 12.0 (5-15) BUN 17 (7-18) mg/dL Creatinine 1.0 (0.55-1.02) mg/dL Est Cr Clr Drug Dosing 56.00 mL/min Estimated GFR (MDRD) 56 (>60) mL/min BUN/Creatinine Ratio 17.0 (14-18) Glucose 118 H (80-115) mg/dL Calcium 8.5 (8.5-10.1) mg/dL Total Bilirubin 0.6 (0.2-1.0) mg/dL AST 38 H (15-37) U/L ALT 50 (14-59) U/L Alkaline Phosphatase 63 (46-116) U/L Total Protein 5.8 L (6.4-8.2) g/dl Albumin 2.9 L (3.4-5.0) g/dl Globulin 2.9 gm/dL Albumin/Globulin Ratio 1.0 (1-2) Med Orders - Current: Current Medications Discontinued Medications Acetaminophen (Tylenol) 975 mg PO NOW [facility] Last Admin: 01/28/19 06:29 Dose: 975 mg Aspirin (Ecotrin) 325 mg PO BID [facility] Last Admin: 01/29/19 09:41 Dose: 325 mg Bisacodyl (Dulcolax) 5 mg PO DAILY PRN PRN Reason: Constipation Bupivacaine HCl (Marcaine 0.25%) Confirm Administered Dose 30 ml .ROUTE .STK- MED ONE Stop: 01/28/19 06:28 Last Admin: 01/28/19 08:21 Dose: 30 ml Calcium Carbonate/Glycine (Tums) 500 mg PO DAILY [facility] Last Admin: 01/29/19 09:41 Dose: 500 mg Cefazolin Sodium (Ancef) Confirm Administered Dose 2 gm .ROUTE .STK-MED ONE Stop: 01/28/19 06:28 Last Admin: 01/28/19 08:15 Dose: 2 gm Cholecalciferol (Vitamin D3) 5,000 unit PO DAILY [facility] Last Admin: 01/29/19 09:41 Dose: 5,000 unit Morphine Sulfate 8 mg/Epinephrine HCl 0.3 mg/Cefuroxime Sodium 750 mg/Ketorolac Tromethamine 30 mg/Sodium Chloride 27.9 ml 0 mg .XX ONETIME ONE Stop: 01/28/19 06:22 Last Admin: 01/28/19 08:20 Dose: 788.3 mg Morphine Sulfate 8 mg/Epinephrine HCl 0.3 mg/Cefuroxime Sodium 750 mg/Ketorolac Tromethamine 30 mg/Sodium Chloride 27.9 ml 0 mg .XX ONETIME ONE Stop: 01/28/19 08:01 Last Admin: 01/28/19 12:25 Dose: Not Given Cyclobenzaprine HCl (Flexeril) 10 mg PO TID PRN PRN Reason: Spasms Dexamethasone (Dexamethasone) Confirm Administered Dose 4 mg .ROUTE .STK-MED ONE Stop: 01/28/19 07:03 Diphenhydramine HCl (Benadryl) 25 mg IVPUSH Q6H PRN PRN Reason: pruritis Stop: 01/28/19 23:00 Docusate Sodium (Colace) 100 mg PO BID [facility] Last Admin: 01/29/19 09:41 Dose: 100 mg Ephedrine Sulfate (Ephedrine Sulfate) 5 mg IVPUSH ASDIRECTED PRN PRN Reason: Hypotension Stop: 01/28/19 23:00 Ephedrine Sulfate (Ephedrine In Ns) Confirm Administered Dose 25 mg .ROUTE .STK- MED ONE Stop: 01/28/19 08:21 Epinephrine HCl (Adrenalin) Confirm Administered Dose 1 mg .ROUTE .STK-MED ONE Stop: 01/28/19 06:30 Famotidine (Pepcid) 20 mg PO Q12H [facility] Last Admin: 01/29/19 06:22 Dose: 20 mg Fentanyl (Sublimaze) Confirm Administered Dose 100 mcg .ROUTE .[facility]-MED ONE Stop: 01/28/19 07:04 Fentanyl (Sublimaze) 50 mcg IVPUSH Q5M PRN PRN Reason: Pain Stop: 01/28/19 23:00 Haloperidol Lactate (Haldol) 1 mg IVPUSH ONETIME ONE Stop: 01/28/19 07:33 Last Admin: 01/28/19 12:24 Dose: Not Given Hydromorphone HCl (Dilaudid) 0.5 mg IVPUSH Q15M PRN PRN Reason: Pain (severe 7-10) Stop: 01/28/19 23:00 Lactated Ringer's (Ringers, Lactated) 1,000 mls @ 125 mls/hr IV ASDIRECTED [facility] Stop: 01/28/19 23:00 Last Admin: 01/28/19 06:35 Dose: 125 mls/hr Cefazolin Sodium/Dextrose 2 gm (/ Premix) 50 mls @ 100 mls/hr IV Q8H [facility] Stop: 01/28/19 22:59 Last Admin: 01/28/19 14:28 Dose: Not Given Lidocaine HCl (Xylocaine-Mpf 1%) Confirm Administered Dose 10 mls @ as directed .ROUTE .[facility]-MED ONE Stop: 01/28/19 07:03 Lactated Ringer's (Ringers, Lactated) Confirm Administered Dose 1,000 mls @ as directed .ROUTE .[facility] ONE Stop: 01/28/19 07:03 Phenylephrine HCl 1 mg/ Sodium (Chloride) 10.1 mls @ 1 mls/sec IV TITRATE RADHA; Protocol Stop: 01/28/19 23:00 Lactated Ringer's (Ringers, Lactated) Confirm Administered Dose 1,000 mls @ as directed .ROUTE .[facility]-MED ONE Stop: 01/28/19 08:28 Cefazolin Sodium/Dextrose 2 gm (/ Premix) 50 mls @ 100 mls/hr IV Q8H [facility] Stop: 01/29/19 06:59 Last Admin: 01/29/19 06:22 Dose: 100 mls/hr Iodine (Iodine 2% Mild Tincture) Confirm Administered Dose 30 ml .ROUTE .STK- MED ONE Stop: 01/28/19 06:28 Last Admin: 01/28/19 08:12 Dose: 18 ml Ketorolac Tromethamine (Toradol) 15 mg IVPUSH Q6H PRN PRN Reason: Pain Last Admin: 01/29/19 10:14 Dose: 15 mg Ketorolac Tromethamine (Toradol) Confirm Administered Dose 30 mg .ROUTE .STSeakeeper- MED ONE Stop: 01/28/19 07:03 Levothyroxine Sodium (Levothyroxine) 125 mcg PO DAILY@0700 [facility] Last Admin: 01/29/19 06:22 Dose: 125 mcg Lidocaine/Sodium Bicarbonate (Buffered Lidocaine 1% In Ns 8.4%) 0.25 ml IDERM ONETIME PRN PRN Reason: Prior to IV Start Stop: 01/28/19 18:00 Last Admin: 01/28/19 06:24 Dose: 0.25 ml Magnesium Hydroxide (Milk Of Magnesia) 30 ml PO BID PRN PRN Reason: Constipation Midazolam HCl (Versed 1 Mg/Ml) Confirm Administered Dose 2 mg .ROUTE .[facility]Seakeeper-MED ONE Stop: 01/28/19 07:04 Miscellaneous Information (Remove Patch) 1 ea TRDERM Q72H [facility] Morphine Sulfate (Morphine) 2 mg IVPUSH Q2H PRN PRN Reason: Breakthrough Pain Naloxone HCl (Narcan) 0.1 mg IVPUSH Q5M PRN PRN Reason: Oversedation Ondansetron HCl (Zofran) 4 mg IVPUSH Q6H PRN PRN Reason: Nausea/Vomiting Ondansetron HCl (Zofran) Confirm Administered Dose 4 mg .ROUTE .[facility]Seakeeper-MED ONE Stop: 01/28/19 07:03 Ondansetron HCl (Zofran) 4 mg IVPUSH ONETIME PRN PRN Reason: Nausea/Vomiting Stop: 01/28/19 23:00 Oxycodone HCl (Oxycodone) 10 mg PO ONETIME [facility] Last Admin: 01/28/19 06:29 Dose: 10 mg Oxycodone/Acetaminophen (Percocet 325-5 Mg) 1 - 2 tab PO Q4H PRN PRN Reason: Pain Last Admin: 01/29/19 10:15 Dose: 2 tab Phenylephrine HCl (Pedro-Synephrine) Confirm Administered Dose 10 mg .ROUTE .STK- MED ONE Stop: 01/28/19 07:03 Pregabalin (Lyrica) 50 mg PO ONETIME RADHA Pregabalin (Lyrica) 50 mg PO ONETIME [facility] Last Admin: 01/28/19 06:29 Dose: 50 mg Propofol (Diprivan 20 Ml) Confirm Administered Dose 400 mg .ROUTE .STK-MED ONE Stop: 01/28/19 07:04 Ropivacaine (Naropin 0.5%) Confirm Administered Dose 30 ml .ROUTE .STK-MED ONE Stop: 01/28/19 06:30 Scopolamine (Transderm-Scop) 1.5 mg TOP ONETIME ONE Stop: 01/28/19 08:01 Last Admin: 01/28/19 12:23 Dose: Not Given Scopolamine (Transderm-Scop) 1.5 mg TOP Q72H PRN PRN Reason: motion sickness Senna (Senna) 8.6 mg PO BID PRN PRN Reason: Constipation Sodium Chloride (Saline Flush) 10 ml FLUSH ASDIRECTED PRN PRN Reason: Keep Vein Open Stop: 01/28/19 18:00 Tranexamic Acid (Cyklokapron) Confirm Administered Dose 1,000 mg .ROUTE .STK- MED ONE Stop: 01/28/19 06:28 Last Admin: 01/28/19 08:31 Dose: 1,000 mg Vancomycin HCl (Vancomycin) Confirm Administered Dose 1 gm .ROUTE .STK-MED ONE Stop: 01/28/19 06:28 Last Admin: 01/28/19 08:22 Dose: 1 gm
[2019-01-31] MEDS ORDERED: Scopolamine 1.5 MG Transdermal Patch TOP PRN (07:00)
== END 2019-01-29 11:20 | disposition home or self-care (01) | DRG 470 ==
LOC: JD.MS 05:57 → EDSTATUS 08:00
PROVIDERS: ADMIT Orthopaedic Surgery; ATTEND Orthopaedic Surgery
PROC: 0SRC0JA Replacement of Right Knee Joint with Synthetic Substitute, Uncemented, Open Approach (ICD-10-PCS; principal; 2019-01-28)
PROC: 3E0T3BZ Introduction of Anesthetic Agent into Peripheral Nerves and Plexi, Percutaneous Approach (ICD-10-PCS; 2019-01-28)
DX: M17.11 Unilateral primary osteoarthritis, right knee (principal); E03.9 Hypothyroidism, unspecified; E78.5 Hyperlipidemia, unspecified; K21.9 Gastro-esophageal reflux disease without esophagitis; M85.80 Other specified disorders of bone density and structure, unspecified site; H54.7 Unspecified visual loss; E78.00 Pure hypercholesterolemia, unspecified; G89.18 Other acute postprocedural pain; M25.761 Osteophyte, right knee; Z88.8 Allergy status to other drugs, medicaments and biological substances; Z79.899 Other long term (current) drug therapy; Z79.890 Hormone replacement therapy
CPT/HCPCS: 01402; 36415; 64450; 73560-26-RT; 73560-RT; 80053; 85027; 87641; 97110-GP; 97116-GP; 97161-GP; 97165-GO; 97535-GO; A9270-GY; C1776; J0171; J0690; J0697; J1100; J1885; J2001; J2250; J2270; J2370; J2405; J2704; J2795; J3010; J3370; J3490; J7050; J7120

== ENCOUNTER 2024-09-30 06:15 | Day surgery (SDC) | payer MEDICARE, BC ==
[~2024-09-30 06:15] MED LIST changes: -Lidocaine 1%/Sod Bicarbonate in NS 8.4% 1 ML Syringe IDERM PRN; +Sodium Chloride 0.9% 10 ML Syringe FLUSH SCH; +ceFAZolin 2 GM Vial ONE
[2024-09-30] MEDS ORDERED: Lidocaine 1% 30 ML SDV ONE (06:18)
[2024-09-30] MEDS: Lidocaine 1% 10 ML MDV ONE (07:12)
[2024-09-30] MEDS: Bupivacaine 0.25% 10 ML SDV ONE (07:12)
[2024-09-30 07:48] VITALS: BP 165/82; PULSE 72
== END 2024-09-30 07:35 | disposition home or self-care (01) ==
LOC: JD.SDS 06:15
PROVIDERS: ATTEND Orthopaedic Surgery
DX: G56.11 Other lesions of median nerve, right upper limb (principal); E03.9 Hypothyroidism, unspecified; E78.5 Hyperlipidemia, unspecified
CPT/HCPCS: 64721; J0665; J0690; J3490